=== PATIENT | female | born 1955 | race Caucasian/White ===

== ENCOUNTER 2017-07-16 17:44 | Observation (INO) | payer BC ==
[~2017-07-16] VITALS: Ht 162.6 cm; Wt 62.4 kg
[2017-07-16 19:01] LABS: HEMATOCRIT 42.9 % (36.0-46.0); HEMOGLOBIN 14.2 G/DL (11.9-15.5); MCH 30.6 PG (29.0-34.0); MCHC 33.1 G/DL (30.0-36.0); MCV 92.5 FL (83-99); PLATELET COUNT 221 K/uL (156-360); RBC DIS.WIDTH-CV 13.1 % (11.8-14.6); RBC DIS.WIDTH-SD 44.4 % (39-53); RED BLOOD COUNT 4.64 M/uL (3.80-5.20); WHITE BLOOD COUNT 7.3 K/uL (4.1-10.2)
[2017-07-16 19:09] LABS: CHLORIDE 107 mEq/L (99-109); POTASSIUM 4.1 mEq/L (3.7-5.4); SODIUM 142 mEq/L (136-147)
[2017-07-16 19:11] LABS: GLUCOSE 96 mg/dL (70-99)
[2017-07-16 19:15] LABS: CREATININE 0.7 mg/dL (0.6-1.3); GFR ESTIMATE (CALCULATED) > 59 mL/min/
[2017-07-16 19:16] LABS: UREA NITROGEN (BUN) 14 mg/dL (9-23)
[2017-07-16 19:21] LABS: TROP-I INTERPRETATION NEGATIVE; TROPONIN-I < 0.01 ng/mL (0.0-0.30)
[2017-07-16 20:48] LABS: D-DIMER ELISA < 150.00 ng/mLDDU (<230)
[2017-07-16] MEDS ORDERED: LIPITOR20 MG PO (21:16)
[2017-07-16] MEDS ORDERED: OMEPRAZOLE40 M1 PO (21:16)
[2017-07-16] MEDS ORDERED: ASPIR 8181 M1 PO (21:17)
[2017-07-16] MEDS ORDERED: VITAMIN D31000 UNIT PO (21:17)
[2017-07-17 00:53] VITALS: BP 137/66
[2017-07-17 05:17] VITALS: BP 100/65
[2017-07-17 07:31] VITALS: BP 102/59
[2017-07-17 10:01] LABS: TROP-I INTERPRETATION NEGATIVE; TROPONIN-I < 0.01 ng/mL (0.0-0.30)
[2017-07-17 10:24] LABS: HDL CHOLESTEROL 37 MG/DL (Desirable>=50); LDL CHOLESTEROL 99 mg/dL (Desirable<100); NON-HDL CHOLESTEROL 125 mg/dL (Desirable<160); TOTAL CHOLESTEROL 162 mg/dL (Desirable<200); TRIGLYCERIDES 130 MG/DL (Normal: <150)
[2017-07-17] MEDS ORDERED: NITROSTAT0.4 MG SL (10:54)
[2017-07-17 11:22] VITALS: BP 110/76
== END 2017-07-17 12:45 | disposition home or self-care (01) ==
LOC: EME 17:44 → EDOF 22:37 → 5WEST 22:37 → EDOF 22:37 → ENRESERV 22:39 → 5WEST 23:34
PROVIDERS: Physician Assistant Medical
DX: R07.9 Chest pain, unspecified (principal); K21.9 Gastro-esophageal reflux disease without esophagitis; K22.2 Esophageal obstruction; E78.5 Hyperlipidemia, unspecified; K31.7 Polyp of stomach and duodenum; Z90.710 Acquired absence of both cervix and uterus; Z87.891 Personal history of nicotine dependence; Z88.1 Allergy status to other antibiotic agents; Z82.49 Family history of ischemic heart disease and other diseases of the circulatory system
CPT/HCPCS: 71046; 80048; 80061; 84484; 85027; 85379; 93005; G0378; J1650